=== PATIENT | female | born 1960 | race Hispanic/Latino ===

== ENCOUNTER 2022-03-22 21:30 | Inpatient (IN) | payer OTHER ==
[~2022-03-22] VITALS: Ht 152.4 cm; Wt 56.2 kg
[~2022-03-22 21:30] MED LIST: ASPI-1005 PO; ATOR40TA69 PO; CLOP75TA14 PO; INSLAN SQ; LEVO750T68 PO; LOSA50TA2 PO; METF-446 PO; METO50 PO; METR-172 PO
[2022-03-22 22:26] LABS: BASOPHILS % (AUTO) 0.4 % (0.0-5.0); HEMATOCRIT 28.7 % (36-48); LYMPHOCYTES % (AUTO) 27.1 % (21.0-51.0); MEAN CORPUSCULAR HEMOGLOBIN 29.4 pg (27.0-33.0); MEAN CORPUSCULAR HGB CONC 34.1 g/dL (32.0-36.0); MEAN CORPUSCULAR VOLUME 86.2 fL (79-99); MONOCYTES % (AUTO) 5.4 % (3.0-13.0); NEUTROPHILS % (AUTO) 63.8 % (40.0-77.0); PLATELET COUNT (AUTO) 237 K/uL (130-400); RED BLOOD CELL COUNT(AUTO) 3.33 MIL/uL (4.00-5.50)
[2022-03-22 22:43] LABS: CARBON DIOXIDE 28 mmol/L (21-32); CHLORIDE 100 mmol/L (101-111); CREATININE 1.5 mg/dL (0.5-1.5); GLOMERULAR FILTR. RATE CALC 38 mL/min (>60); GLUCOSE,RANDOM 386 mg/dL (70-105); POTASSIUM 4.4 mmol/L (3.5-5.1); SODIUM SERUM 135 mmol/L (136-145); UREA NITROGEN, BLOOD 24 mg/dL (7-18)
[2022-03-22 22:47] LABS: ALANINE AMINOTRANSFERASE 17 U/L (12-78); ALBUMIN 2.9 g/dL (3.5-5.0); ASPARTATE AMINOTRANSFERASE 12 U/L (10-37); CREATINE KINASE, TOTAL 39 U/L (21-232); TOTAL PROTEIN, SERUM 7.1 g/dL (6.0-8.3)
[2022-03-22 23:05] LABS: CRP QUANTITATIVE < 2.00 mg/L (0.00-9.0)
[2022-03-22 23:20] LABS: B-TYPE NATRIURETIC PEPTIDE 62 pg/mL (0-100)
[2022-03-23] MEDS ORDERED: 0.9% NACL 500ML IV.SOLN 500 ML IV ONE (01:00)
[2022-03-23] MEDS ORDERED: INSULIN HUMULIN R 100 UNIT/ML 3ML IV ONE (01:00)
[2022-03-23 01:05] LABS: APPEARANCE,URINE Clear (CLEAR); BILIRUBIN,URINE Negative (NEGATIVE); COLOR,URINE Yellow (YELLOW); GLUCOSE, URINE (UA) >=1000 mg/dL (NEGATIVE); KETONES,URINE Negative (NEGATIVE); LEUKOCYTE ESTERASE ,URINE Trace (NEGATIVE); NITRATE,URINE Negative (NEGATIVE); OCCULT BLOOD,URINE Negative (NEGATIVE); PROTEIN,URINE Negative (NEGATIVE); UROBILINOGEN,URINE 0.2 mg/dL (0.2-1.0)
[2022-03-23 01:24] LABS: BACTERIA,URINE None Seen /HPF (None Seen); RBC,URINE None Seen /HPF (0-1); SQUAMOUS EPITHELIAL CELL,UR Rare /HPF (0-2); WBC,URINE 0-1 /HPF (0-1); YEAST,URINE BUDDING None Seen /HPF (None Seen)
[2022-03-23] MEDS ORDERED: INSULIN HUMULIN R 100 UNIT/ML 3ML SQ ONE (01:30)
[2022-03-23] MEDS: LACTATED RINGERS 1000ML 1,000 ML IV SCH ×2 (03:27→03:58)
[2022-03-23] MEDS ORDERED: ACETAMINOPHEN 325 MG TAB PO PRN ×2 (03:30)
[2022-03-23] MEDS: 0.9%NACL 1000ML 1,000 ML IV SCH ×2 (03:30→12:30)
[2022-03-23] MEDS ORDERED: ONDANSETRON 4MG INJ IV PRN (03:30)
[2022-03-23] MEDS ORDERED: GLUCAGON 1MG KIT 1 MG ML IM PRN (03:30)
[2022-03-23] MEDS ORDERED: DiphenhydrAMINE HCL 50 MG/ML VIAL IV PRN (03:30)
[2022-03-23] MEDS ORDERED: DEXTROSE 50%-WATER 50 ML DISP.SYRIN IV PRN (03:30)
[2022-03-23 05:00] VITALS: BP 147/68
[2022-03-23 06:04] LABS: BASOPHILS % (AUTO) 0.6 % (0.0-5.0); EOSINOPHILS % (AUTO) 3.3 % (0.0-8.0); HEMATOCRIT 29.7 % (36-48); LYMPHOCYTES % (AUTO) 34.5 % (21.0-51.0); MEAN CORPUSCULAR HEMOGLOBIN 28.9 pg (27.0-33.0); MEAN CORPUSCULAR HGB CONC 33.3 g/dL (32.0-36.0); MEAN CORPUSCULAR VOLUME 86.6 fL (79-99); MONOCYTES % (AUTO) 5.6 % (3.0-13.0); NEUTROPHILS % (AUTO) 55.8 % (40.0-77.0); PLATELET COUNT (AUTO) 229 K/uL (130-400); RED BLOOD CELL COUNT(AUTO) 3.43 MIL/uL (4.00-5.50); WHITE BLOOD COUNT (AUTO) 6.6 K/uL (4.8-10.8)
[2022-03-23] MEDS: INSULIN HUMULIN R 100 UNIT/ML 3ML SQ SCH ×4 (06:11→21:00)
[2022-03-23 06:18] LABS: HEMOGLOBIN A1C 9.9 % (4.0-6.0)
[2022-03-23] MEDS ORDERED: ATORVASTATIN 20 MG TABLET PO SCH (06:30)
[2022-03-23] MEDS ORDERED: ASPIRIN 81MG CHEW TAB PO SCH (06:30)
[2022-03-23 06:36] LABS: CREATININE 1.2 mg/dL (0.5-1.5); POTASSIUM 4.6 mmol/L (3.5-5.1); THYROID STIMULATING HORMONE 11.56 uIU/mL (0.36-3.74)
[2022-03-23 08:00] VITALS: BP 157/86
[2022-03-23 09:06] LABS: CHLORIDE,URINE RANDOM 47 mmol/L (110-250); POTASSIUM,URINE RANDOM 12 mmol/L (25-125); SODIUM,URINE RANDOM 45 mmol/l (40-220)
[2022-03-23] MEDS: ENOXAPARIN SODIUM 30 MG/0.3 ML SQ SCH (09:54)
[2022-03-23] MEDS: FAMOTIDINE 20MG VIAL IV SCH (09:54)
[2022-03-23] MEDS ORDERED: VANCOMYCIN PROTOCOL PER PHARMACY IV SCH (10:30)
[2022-03-23 12:00] VITALS: BP 123/65
[2022-03-23] MEDS: VANCOMYCIN 750MG VIAL IVPB SCH (12:31)
[2022-03-23] MEDS: CEFEPIME HCL 2 GM VIAL IVP SCH ×2 (12:36→21:35)
[2022-03-23] MEDS: INSULIN GLARGINE 100 UNITS/ML 10 ML VIAL SQ SCH ×2 (12:38→21:37)
[2022-03-23] MEDS: METRONIDAZOLE 500MG/100ML BAG 100 ML IVPB SCH ×2 (14:45→21:35)
[2022-03-23 16:00] VITALS: BP 129/66
[2022-03-23] MEDS: ASPIRIN 81MG CHEW TAB PO SCH (19:30)
[2022-03-23 20:00] VITALS: BP 143/81
[2022-03-23] MEDS: ATORVASTATIN 40 MG TABLET PO SCH (21:33)
[2022-03-23] MEDS: METOPROLOL TARTRATE 25 MG TAB PO SCH (21:33)
[2022-03-24] VITALS: BP 118/65
[2022-03-24 04:00] VITALS: BP 115/55
[2022-03-24 04:32] LABS: BASOPHILS % (AUTO) 0.7 % (0.0-5.0); EOSINOPHILS % (AUTO) 2.8 % (0.0-8.0); LYMPHOCYTES % (AUTO) 34.9 % (21.0-51.0); MEAN CORPUSCULAR HEMOGLOBIN 28.7 pg (27.0-33.0); MEAN CORPUSCULAR HGB CONC 32.4 g/dL (32.0-36.0); MEAN CORPUSCULAR VOLUME 88.4 fL (79-99); MONOCYTES % (AUTO) 5.5 % (3.0-13.0); NEUTROPHILS % (AUTO) 55.8 % (40.0-77.0); PLATELET COUNT (AUTO) 232 K/uL (130-400); RED BLOOD CELL COUNT(AUTO) 3.28 MIL/uL (4.00-5.50); RED CELL DISTRIBUTION WIDTH 13.1 % (11.0-15.5); WHITE BLOOD COUNT (AUTO) 7.2 K/uL (4.8-10.8)
[2022-03-24 04:50] LABS: % IRON SATURATION 25.5 % (22-44)
[2022-03-24 04:54] LABS: ALBUMIN 2.6 g/dL (3.5-5.0); CREATININE 1.2 mg/dL (0.5-1.5); MAGNESIUM 1.4 mg/dL (1.80-2.40); TOTAL PROTEIN, SERUM 6.3 g/dL (6.0-8.3); URIC ACID 3.4 mg/dL (2.6-7.2)
[2022-03-24] MEDS: METRONIDAZOLE 500MG/100ML BAG 100 ML IVPB SCH ×3 (06:02→21:45)
[2022-03-24] MEDS: MAGNESIUM 2GM PREMIX 50ML 50 ML IV PRN (06:03)
[2022-03-24] MEDS: INSULIN GLARGINE 100 UNITS/ML 10 ML VIAL SQ SCH ×2 (06:04→22:00)
[2022-03-24] MEDS: INSULIN HUMULIN R 100 UNIT/ML 3ML SQ SCH ×4 (06:05→21:00)
[2022-03-24 07:00] VITALS: BP 120/67
[2022-03-24] MEDS: METOPROLOL TARTRATE 25 MG TAB PO SCH ×2 (09:52→21:45)
[2022-03-24] MEDS: FAMOTIDINE 20MG VIAL IV SCH (09:52)
[2022-03-24] MEDS: CEFEPIME HCL 2 GM VIAL IVP SCH ×2 (09:52→21:45)
[2022-03-24] MEDS: Vitamin B Complex/Vit C/Folic Acid PO SCH (09:52)
[2022-03-24] MEDS: ASPIRIN 81MG CHEW TAB PO SCH (09:52)
[2022-03-24] MEDS: ENOXAPARIN SODIUM 30 MG/0.3 ML SQ SCH (09:53)
[2022-03-24 11:00] VITALS: BP 110/58
[2022-03-24] MEDS ORDERED: 0.9% NACL 250ML 250 ML ONE (11:01)
[2022-03-24] MEDS: VANCOMYCIN 750MG VIAL IVPB SCH (11:04)
[2022-03-24] MEDS: 0.9%NACL 1000ML 1,000 ML IV SCH (12:50)
[2022-03-24 16:00] VITALS: BP 128/59
[2022-03-24] MEDS ORDERED: PHARMACY COMMUNICATION MISC SCH ×2 (18:30→19:00)
[2022-03-24 20:00] VITALS: BP 122/69
[2022-03-24] MEDS: ATORVASTATIN 40 MG TABLET PO SCH (21:45)
[2022-03-25] VITALS (14 sets, daily range): BP systolic 115–185; BP diastolic 52–87
[2022-03-25 04:39] LABS: HEMATOCRIT 27.5 % (36-48); MEAN CORPUSCULAR HGB CONC 32.7 g/dL (32.0-36.0); MEAN CORPUSCULAR VOLUME 88.7 fL (79-99); RED BLOOD CELL COUNT(AUTO) 3.1 MIL/uL (4.00-5.50); RED CELL DISTRIBUTION WIDTH 13.1 % (11.0-15.5)
[2022-03-25 05:01] LABS: CREATININE 1.1 mg/dL (0.5-1.5); MAGNESIUM 1.6 mg/dL (1.80-2.40); POTASSIUM 3.8 mmol/L (3.5-5.1)
[2022-03-25] MEDS: METRONIDAZOLE 500MG/100ML BAG 100 ML IVPB SCH ×3 (06:19→21:34)
[2022-03-25] MEDS: INSULIN HUMULIN R 100 UNIT/ML 3ML SQ SCH ×4 (06:19→21:00)
[2022-03-25] MEDS: 0.9%NACL 1000ML 1,000 ML IV SCH (06:19)
[2022-03-25] MEDS: LEVOTHYROXINE 75 MCG TABLET PO SCH (06:19)
[2022-03-25] MEDS: INSULIN GLARGINE 100 UNITS/ML 10 ML VIAL SQ SCH ×2 (06:20→21:42)
[2022-03-25] MEDS: ENOXAPARIN SODIUM 30 MG/0.3 ML SQ SCH (09:28)
[2022-03-25] MEDS: FAMOTIDINE 20MG VIAL IV SCH (09:28)
[2022-03-25] MEDS: CEFEPIME HCL 2 GM VIAL IVP SCH ×2 (09:28→21:34)
[2022-03-25] MEDS: ASPIRIN 81MG CHEW TAB PO SCH (09:28)
[2022-03-25] MEDS: METOPROLOL TARTRATE 25 MG TAB PO SCH ×2 (09:28→21:34)
[2022-03-25] MEDS: Vitamin B Complex/Vit C/Folic Acid PO SCH (09:28)
[2022-03-25] MEDS: VANCOMYCIN 750MG VIAL IVPB SCH (11:41)
[2022-03-25] MEDS ORDERED: NITROGLYCERIN 50MG VIAL ONE (12:38)
[2022-03-25] MEDS ORDERED: MIDAZOLAM HCL 1 MG/ML 2ML VIAL ONE (12:38)
[2022-03-25] MEDS ORDERED: HEPARIN 10,000 UNIT/10ML (1,000 UNIT/ML) VIAL ONE (12:38)
[2022-03-25] MEDS ORDERED: SODIUM BICARB 50MEQ 50ML VIAL 50 ML ONE (12:38)
[2022-03-25] MEDS ORDERED: LIDOCAINE HCL 400MG/20ML VIAL ONE (12:39)
[2022-03-25] MEDS ORDERED: FENTANYL CITRATE PF 50 MCG/1 ML 2ML VIAL ONE (12:39)
[2022-03-25] MEDS ORDERED: IOHEXOL 350 MG/ML 100ML INFUS..BTL IV ONE (12:40)
[2022-03-25] MEDS ORDERED: 0.9%NACL 1000ML 1,000 ML IV SCH (14:30)
[2022-03-25] MEDS ORDERED: MORPHINE 5 MG/ML VIAL (5MG OR GREATER DOSE) IVP SCH (14:30)
[2022-03-25] MEDS: ATORVASTATIN 40 MG TABLET PO SCH (21:34)
[2022-03-26 04:35] LABS: BASOPHILS % (AUTO) 0.5 % (0.0-5.0); EOSINOPHILS % (AUTO) 1.8 % (0.0-8.0); HEMATOCRIT 28.6 % (36-48); LYMPHOCYTES % (AUTO) 27.7 % (21.0-51.0); MEAN CORPUSCULAR HEMOGLOBIN 28.7 pg (27.0-33.0); MEAN CORPUSCULAR HGB CONC 32.9 g/dL (32.0-36.0); MEAN CORPUSCULAR VOLUME 87.5 fL (79-99); MONOCYTES % (AUTO) 5.9 % (3.0-13.0); NEUTROPHILS % (AUTO) 63.8 % (40.0-77.0); PLATELET COUNT (AUTO) 221 K/uL (130-400); RED BLOOD CELL COUNT(AUTO) 3.27 MIL/uL (4.00-5.50); RED CELL DISTRIBUTION WIDTH 13.1 % (11.0-15.5); WHITE BLOOD COUNT (AUTO) 7.6 K/uL (4.8-10.8)
[2022-03-26 04:45] VITALS: BP 106/56
[2022-03-26] MEDS: METRONIDAZOLE 500MG/100ML BAG 100 ML IVPB SCH ×3 (04:59→20:41)
[2022-03-26] MEDS: LEVOTHYROXINE 75 MCG TABLET PO SCH (04:59)
[2022-03-26 05:00] LABS: CREATININE 1.1 mg/dL (0.5-1.5); MAGNESIUM 1.5 mg/dL (1.80-2.40); POTASSIUM 3.8 mmol/L (3.5-5.1)
[2022-03-26] MEDS: INSULIN HUMULIN R 100 UNIT/ML 3ML SQ SCH ×4 (06:49→20:42)
[2022-03-26] MEDS: MAGNESIUM 2GM PREMIX 50ML 50 ML IV PRN (06:54)
[2022-03-26 08:17] VITALS: BP 134/67
[2022-03-26] MEDS: Vitamin B Complex/Vit C/Folic Acid PO SCH (10:16)
[2022-03-26] MEDS: PRASUGREL HCL 10 MG TABLET PO SCH (10:16)
[2022-03-26] MEDS: ASPIRIN 81MG CHEW TAB PO SCH (10:16)
[2022-03-26] MEDS: METOPROLOL TARTRATE 25 MG TAB PO SCH ×2 (10:16→20:41)
[2022-03-26] MEDS: CEFEPIME HCL 2 GM VIAL IVP SCH ×2 (10:17→20:41)
[2022-03-26] MEDS: ENOXAPARIN SODIUM 30 MG/0.3 ML SQ SCH (10:17)
[2022-03-26] MEDS: VANCOMYCIN 750MG VIAL IVPB SCH (10:18)
[2022-03-26] MEDS: FAMOTIDINE 20MG VIAL IV SCH (10:18)
[2022-03-26] MEDS: INSULIN GLARGINE 100 UNITS/ML 10 ML VIAL SQ SCH ×2 (10:59→21:38)
[2022-03-26] MEDS: 0.9%NACL 1000ML 1,000 ML IV SCH ×2 (11:03→14:58)
[2022-03-26 11:58] VITALS: BP 125/67
[2022-03-26] MEDS ORDERED: LIDOCAINE HCL-MPF 1% 2ML VIAL IV PRN (12:00)
[2022-03-26] MEDS ORDERED: POTASSIUM CHLORIDE 10% ELIXIR 20 MEQ/15 ML UDCUP PO PRN (12:00)
[2022-03-26] MEDS ORDERED: POTASSIUM CHLORIDE 20MEQ/100ML 100 ML IV PRN (12:00)
[2022-03-26] MEDS: SODIUM HYPOCHLORITE 0.25% [HALF STRENGTH] 473 ML TOPICAL SOLN TP SCH (14:25)
[2022-03-26 16:11] VITALS: BP 114/51
[2022-03-26] MEDS: KCL 20 MEQ ERTAB PO PRN ×2 (17:10→19:21)
[2022-03-26 20:38] VITALS: BP 118/65
[2022-03-26] MEDS: ATORVASTATIN 40 MG TABLET PO SCH (20:41)
[2022-03-26] MEDS ORDERED: PRAS10TA9 PO (21:03)
[2022-03-26 22:41] LABS: APPEARANCE,URINE CLEAR (CLEAR); BILIRUBIN,URINE NEGATIVE (NEGATIVE); GLUCOSE, URINE (UA) NEGATIVE (NEGATIVE); KETONES,URINE NEGATIVE (NEGATIVE); LEUKOCYTE ESTERASE ,URINE NEGATIVE (NEGATIVE); NITRATE,URINE NEGATIVE (NEGATIVE); OCCULT BLOOD,URINE NEGATIVE (NEGATIVE); PROTEIN,URINE NEGATIVE (NEGATIVE); UROBILINOGEN,URINE 0.2 mg/dL (0.2-1.0)
[2022-03-26 22:50] LABS: COLOR,URINE STRAW (YELLOW)
[2022-03-26 23:58] VITALS: BP 106/63
[2022-03-27] VITALS (7 sets, daily range): BP systolic 85–141; BP diastolic 50–77
[2022-03-27 04:40] LABS: HEMATOCRIT 25.6 % (36-48); MEAN CORPUSCULAR HEMOGLOBIN 28.6 pg (27.0-33.0); MEAN CORPUSCULAR HGB CONC 32.8 g/dL (32.0-36.0); MEAN CORPUSCULAR VOLUME 87.1 fL (79-99); RED BLOOD CELL COUNT(AUTO) 2.94 MIL/uL (4.00-5.50); RED CELL DISTRIBUTION WIDTH 13.2 % (11.0-15.5); WHITE BLOOD COUNT (AUTO) 7.1 K/uL (4.8-10.8)
[2022-03-27 05:05] LABS: ALBUMIN 2.5 g/dL (3.5-5.0); MAGNESIUM 1.9 mg/dL (1.80-2.40); POTASSIUM 4.2 mmol/L (3.5-5.1); TOTAL PROTEIN, SERUM 5.9 g/dL (6.0-8.3)
[2022-03-27] MEDS: INSULIN HUMULIN R 100 UNIT/ML 3ML SQ SCH ×4 (05:36→22:19)
[2022-03-27] MEDS: INSULIN GLARGINE 100 UNITS/ML 10 ML VIAL SQ SCH (05:37)
[2022-03-27] MEDS: METRONIDAZOLE 500MG/100ML BAG 100 ML IVPB SCH ×3 (05:38→22:24)
[2022-03-27] MEDS: LEVOTHYROXINE 75 MCG TABLET PO SCH (05:38)
[2022-03-27] MEDS: MAGNESIUM 2GM PREMIX 50ML 50 ML IV PRN (06:19)
[2022-03-27] MEDS: 0.9%NACL 1000ML 1,000 ML IV SCH (07:30)
[2022-03-27] MEDS: CEFEPIME HCL 2 GM VIAL IVP SCH ×2 (10:25→22:24)
[2022-03-27] MEDS: Vitamin B Complex/Vit C/Folic Acid PO SCH (10:25)
[2022-03-27] MEDS: PRASUGREL HCL 10 MG TABLET PO SCH (10:25)
[2022-03-27] MEDS: FAMOTIDINE 20MG VIAL IV SCH (10:26)
[2022-03-27] MEDS: ASPIRIN 81MG CHEW TAB PO SCH (10:26)
[2022-03-27] MEDS: SODIUM HYPOCHLORITE 0.25% [HALF STRENGTH] 473 ML TOPICAL SOLN TP SCH (10:27)
[2022-03-27] MEDS: ENOXAPARIN SODIUM 30 MG/0.3 ML SQ SCH (10:27)
[2022-03-27] MEDS: VANCOMYCIN 750MG VIAL IVPB SCH (10:27)
[2022-03-27] MEDS: METOPROLOL TARTRATE 25 MG TAB PO SCH ×2 (12:38→22:16)
[2022-03-27] MEDS ORDERED: INSULIN GLARGINE 100 UNITS/ML 10 ML VIAL SQ SCH (21:00)
[2022-03-27] MEDS: ATORVASTATIN 40 MG TABLET PO SCH (22:16)
[2022-03-28] MEDS: 0.9%NACL 1000ML 1,000 ML IV SCH ×2 (00:10→16:50)
[2022-03-28 03:53] VITALS: BP 110/56
[2022-03-28 05:03] LABS: HEMATOCRIT 24.2 % (36-48); MEAN CORPUSCULAR HEMOGLOBIN 29.9 pg (27.0-33.0); MEAN CORPUSCULAR HGB CONC 33.9 g/dL (32.0-36.0); MEAN CORPUSCULAR VOLUME 88.3 fL (79-99); PLATELET COUNT (AUTO) 174 K/uL (130-400); RED BLOOD CELL COUNT(AUTO) 2.74 MIL/uL (4.00-5.50); RED CELL DISTRIBUTION WIDTH 13.2 % (11.0-15.5); WHITE BLOOD COUNT (AUTO) 7.2 K/uL (4.8-10.8)
[2022-03-28 05:26] LABS: CREATININE 1.5 mg/dL (0.5-1.5); POTASSIUM 4.4 mmol/L (3.5-5.1)
[2022-03-28 05:29] LABS: BAND NEUTROPHILS % (MANUAL) 1 % (0-2); BASOPHILS % (MANUAL) 2 % (0-2); EOSINOPHILS % (MANUAL) 1 % (1-6); LYMPHOCYTES % (MANUAL) 42 % (22-44); MAN.DIFF COMMENT-IMPRESSION MANUAL DIFFERENTIAL; MONOCYTES % (MANUAL) 4 % (2-9); PLATELET MORPHOLOGY COMMENT ADEQUATE; SEGMENTED NEUTROPHILS % 50 % (40-70)
[2022-03-28] MEDS: LEVOTHYROXINE 75 MCG TABLET PO SCH (06:12)
[2022-03-28] MEDS: METRONIDAZOLE 500MG/100ML BAG 100 ML IVPB SCH ×3 (06:12→22:03)
[2022-03-28] MEDS: INSULIN HUMULIN R 100 UNIT/ML 3ML SQ SCH ×4 (07:30→20:08)
[2022-03-28] MEDS: Vitamin B Complex/Vit C/Folic Acid PO SCH (07:58)
[2022-03-28] MEDS: METOPROLOL TARTRATE 25 MG TAB PO SCH ×2 (07:58→20:08)
[2022-03-28] MEDS: ASPIRIN 81MG CHEW TAB PO SCH (07:58)
[2022-03-28] MEDS: ENOXAPARIN SODIUM 30 MG/0.3 ML SQ SCH (07:58)
[2022-03-28] MEDS: SODIUM HYPOCHLORITE 0.25% [HALF STRENGTH] 473 ML TOPICAL SOLN TP SCH (07:59)
[2022-03-28] MEDS: FAMOTIDINE 20MG VIAL IV SCH (07:59)
[2022-03-28 08:00] VITALS: BP 119/51
[2022-03-28] MEDS: INSULIN GLARGINE 100 UNITS/ML 10 ML VIAL SQ SCH ×2 (08:06→20:10)
[2022-03-28] MEDS: PRASUGREL HCL 10 MG TABLET PO SCH (09:00)
[2022-03-28] MEDS ORDERED: 0.9% NACL 250ML 250 ML ONE (11:44)
[2022-03-28] MEDS: CEFEPIME HCL 2 GM VIAL IVP SCH ×2 (11:47→22:03)
[2022-03-28] MEDS: VANCOMYCIN 750MG VIAL IVPB SCH (11:47)
[2022-03-28 12:14] VITALS: BP 117/58
[2022-03-28 16:00] VITALS: BP 125/55
[2022-03-28 20:01] VITALS: BP 124/58
[2022-03-28] MEDS: ATORVASTATIN 40 MG TABLET PO SCH (20:08)
[2022-03-28 23:13] VITALS: BP 135/63
[2022-03-29 03:32] VITALS: BP 116/57
[2022-03-29] MEDS: METRONIDAZOLE 500MG/100ML BAG 100 ML IVPB SCH ×3 (05:34→22:26)
[2022-03-29] MEDS: LEVOTHYROXINE 75 MCG TABLET PO SCH (05:34)
[2022-03-29 05:59] LABS: BASOPHILS % (AUTO) 0.6 % (0.0-5.0); EOSINOPHILS % (AUTO) 3.8 % (0.0-8.0); MEAN CORPUSCULAR HEMOGLOBIN 29.1 pg (27.0-33.0); MEAN CORPUSCULAR HGB CONC 33.1 g/dL (32.0-36.0); MEAN CORPUSCULAR VOLUME 87.8 fL (79-99); MONOCYTES % (AUTO) 7.3 % (3.0-13.0); NEUTROPHILS % (AUTO) 49.1 % (40.0-77.0); PLATELET COUNT (AUTO) 186 K/uL (130-400); RED BLOOD CELL COUNT(AUTO) 2.96 MIL/uL (4.00-5.50); RED CELL DISTRIBUTION WIDTH 13.2 % (11.0-15.5); WHITE BLOOD COUNT (AUTO) 6.6 K/uL (4.8-10.8)
[2022-03-29 06:10] LABS: CREATININE 1.2 mg/dL (0.5-1.5); POTASSIUM 3.8 mmol/L (3.5-5.1)
[2022-03-29] MEDS: INSULIN HUMULIN R 100 UNIT/ML 3ML SQ SCH ×7 (07:30→21:49)
[2022-03-29 08:00] VITALS: BP 139/61
[2022-03-29] MEDS: INSULIN GLARGINE 100 UNITS/ML 10 ML VIAL SQ SCH ×2 (08:33→21:50)
[2022-03-29] MEDS: Vitamin B Complex/Vit C/Folic Acid PO SCH (09:13)
[2022-03-29] MEDS: METOPROLOL TARTRATE 25 MG TAB PO SCH ×2 (09:13→20:31)
[2022-03-29] MEDS: ASPIRIN 81MG CHEW TAB PO SCH (09:13)
[2022-03-29] MEDS: PRASUGREL HCL 10 MG TABLET PO SCH (09:13)
[2022-03-29] MEDS: ENOXAPARIN SODIUM 30 MG/0.3 ML SQ SCH (09:14)
[2022-03-29] MEDS: FAMOTIDINE 20MG VIAL IV SCH (09:14)
[2022-03-29] MEDS: CEFEPIME HCL 2 GM VIAL IVP SCH ×2 (11:07→22:26)
[2022-03-29] MEDS: SODIUM HYPOCHLORITE 0.25% [HALF STRENGTH] 473 ML TOPICAL SOLN TP SCH (11:08)
[2022-03-29 11:28] VITALS: BP 115/65
[2022-03-29] MEDS ORDERED: 0.9% NACL 250ML 250 ML ONE (11:40)
[2022-03-29] MEDS: VANCOMYCIN 750MG VIAL IVPB SCH (12:04)
[2022-03-29 16:00] VITALS: BP 127/56
[2022-03-29 20:05] VITALS: BP 124/52
[2022-03-29] MEDS: 0.9%NACL 1000ML 1,000 ML IV SCH (20:31)
[2022-03-29] MEDS: ATORVASTATIN 40 MG TABLET PO SCH (20:31)
[2022-03-30 01:13] VITALS: BP 113/43
[2022-03-30] MEDS: 0.9%NACL 1000ML 1,000 ML IV SCH ×2 (01:40→20:23)
[2022-03-30 04:25] VITALS: BP 125/46
[2022-03-30 05:49] LABS: BASOPHILS % (AUTO) 0.5 % (0.0-5.0); EOSINOPHILS % (AUTO) 4.3 % (0.0-8.0); HEMATOCRIT 24.3 % (36-48); MEAN CORPUSCULAR HEMOGLOBIN 29.4 pg (27.0-33.0); MEAN CORPUSCULAR HGB CONC 32.9 g/dL (32.0-36.0); MEAN CORPUSCULAR VOLUME 89.3 fL (79-99); MONOCYTES % (AUTO) 6.3 % (3.0-13.0); NEUTROPHILS % (AUTO) 51.8 % (40.0-77.0); PLATELET COUNT (AUTO) 193 K/uL (130-400); RED BLOOD CELL COUNT(AUTO) 2.72 MIL/uL (4.00-5.50); RED CELL DISTRIBUTION WIDTH 13.2 % (11.0-15.5); WHITE BLOOD COUNT (AUTO) 7.5 K/uL (4.8-10.8)
[2022-03-30] MEDS: INSULIN HUMULIN R 100 UNIT/ML 3ML SQ SCH ×7 (05:55→20:27)
[2022-03-30 06:03] LABS: ALBUMIN 2.5 g/dL (3.5-5.0); CREATININE 1.2 mg/dL (0.5-1.5); POTASSIUM 3.6 mmol/L (3.5-5.1); TOTAL PROTEIN, SERUM 6.1 g/dL (6.0-8.3)
[2022-03-30] MEDS: LEVOTHYROXINE 75 MCG TABLET PO SCH (06:04)
[2022-03-30] MEDS: METRONIDAZOLE 500MG/100ML BAG 100 ML IVPB SCH ×3 (06:04→21:28)
[2022-03-30] MEDS: INSULIN GLARGINE 100 UNITS/ML 10 ML VIAL SQ SCH ×2 (06:11→20:27)
[2022-03-30] MEDS: KCL 20 MEQ ERTAB PO PRN ×2 (06:33→17:31)
[2022-03-30 07:11] VITALS: BP 132/58
[2022-03-30] MEDS: ASPIRIN 81MG CHEW TAB PO SCH (10:48)
[2022-03-30] MEDS: CEFEPIME HCL 2 GM VIAL IVP SCH ×2 (10:48→21:28)
[2022-03-30] MEDS: ENOXAPARIN SODIUM 30 MG/0.3 ML SQ SCH (10:48)
[2022-03-30] MEDS: FAMOTIDINE 20MG VIAL IV SCH (10:48)
[2022-03-30] MEDS: PRASUGREL HCL 10 MG TABLET PO SCH (10:49)
[2022-03-30] MEDS: Vitamin B Complex/Vit C/Folic Acid PO SCH (10:49)
[2022-03-30] MEDS: METOPROLOL TARTRATE 25 MG TAB PO SCH ×2 (10:49→20:21)
[2022-03-30] MEDS: VANCOMYCIN 750MG VIAL IVPB SCH (11:58)
[2022-03-30 12:04] VITALS: BP 140/61
[2022-03-30] MEDS: SODIUM HYPOCHLORITE 0.25% [HALF STRENGTH] 473 ML TOPICAL SOLN TP SCH (15:15)
[2022-03-30 16:06] VITALS: BP 136/60
[2022-03-30] MEDS: ATORVASTATIN 40 MG TABLET PO SCH (20:21)
[2022-03-30 20:38] VITALS: BP 139/70
[2022-03-30] MEDS ORDERED: LACTULOSE 20 GM/30 ML UDCUP PO ONE (22:30)
[2022-03-31 00:06] VITALS: BP 112/57
[2022-03-31] MEDS ORDERED: LACTULOSE 20 GM/30 ML UDCUP PO PRN (03:30)
[2022-03-31 04:37] VITALS: BP 122/62
[2022-03-31 04:56] LABS: BASOPHILS % (AUTO) 0.8 % (0.0-5.0); EOSINOPHILS % (AUTO) 4.5 % (0.0-8.0); HEMATOCRIT 24.2 % (36-48); LYMPHOCYTES % (AUTO) 40.6 % (21.0-51.0); MEAN CORPUSCULAR HEMOGLOBIN 28.9 pg (27.0-33.0); MEAN CORPUSCULAR HGB CONC 32.6 g/dL (32.0-36.0); MEAN CORPUSCULAR VOLUME 88.6 fL (79-99); MONOCYTES % (AUTO) 7.8 % (3.0-13.0); PLATELET COUNT (AUTO) 187 K/uL (130-400); RED BLOOD CELL COUNT(AUTO) 2.73 MIL/uL (4.00-5.50); RED CELL DISTRIBUTION WIDTH 13.4 % (11.0-15.5); WHITE BLOOD COUNT (AUTO) 6.4 K/uL (4.8-10.8)
[2022-03-31 05:10] LABS: POTASSIUM 3.8 mmol/L (3.5-5.1)
[2022-03-31] MEDS: METRONIDAZOLE 500MG/100ML BAG 100 ML IVPB SCH ×3 (06:02→21:48)
[2022-03-31] MEDS: LEVOTHYROXINE 75 MCG TABLET PO SCH (06:02)
[2022-03-31] MEDS: INSULIN GLARGINE 100 UNITS/ML 10 ML VIAL SQ SCH ×2 (06:06→21:56)
[2022-03-31] MEDS: INSULIN HUMULIN R 100 UNIT/ML 3ML SQ SCH ×7 (06:32→21:00)
[2022-03-31 07:05] VITALS: BP 125/48
[2022-03-31] MEDS: ENOXAPARIN SODIUM 30 MG/0.3 ML SQ SCH (09:00)
[2022-03-31] MEDS: METOPROLOL TARTRATE 25 MG TAB PO SCH ×2 (09:24→21:47)
[2022-03-31] MEDS: PRASUGREL HCL 10 MG TABLET PO SCH (09:24)
[2022-03-31] MEDS: Vitamin B Complex/Vit C/Folic Acid PO SCH (09:24)
[2022-03-31] MEDS: ASPIRIN 81MG CHEW TAB PO SCH (09:24)
[2022-03-31] MEDS: FAMOTIDINE 20MG VIAL IV SCH (09:24)
[2022-03-31] MEDS: CEFEPIME HCL 2 GM VIAL IVP SCH ×2 (10:01→21:47)
[2022-03-31 12:07] VITALS: BP 115/45
[2022-03-31] MEDS: VANCOMYCIN 750MG VIAL IVPB SCH (12:25)
[2022-03-31 16:10] VITALS: BP 133/61
[2022-03-31] MEDS: SODIUM HYPOCHLORITE 0.25% [HALF STRENGTH] 473 ML TOPICAL SOLN TP SCH (17:24)
[2022-03-31] MEDS: VANCOMYCIN 500MG+NS 100ML 100 ML IV SCH (18:31)
[2022-03-31] MEDS: 0.9%NACL 1000ML 1,000 ML IV SCH (18:32)
[2022-03-31 20:20] VITALS: BP 145/66
[2022-03-31] MEDS: ATORVASTATIN 40 MG TABLET PO SCH (21:47)
[2022-04-01] VITALS (7 sets, daily range): BP systolic 108–130; BP diastolic 46–60
[2022-04-01] MEDS: 0.9%NACL 1000ML 1,000 ML IV SCH ×2 (05:31→20:50)
[2022-04-01] MEDS: METRONIDAZOLE 500MG/100ML BAG 100 ML IVPB SCH ×3 (05:31→21:49)
[2022-04-01] MEDS: LEVOTHYROXINE 75 MCG TABLET PO SCH (05:31)
[2022-04-01 05:45] LABS: BASOPHILS % (AUTO) 0.5 % (0.0-5.0); EOSINOPHILS % (AUTO) 4.7 % (0.0-8.0); HEMATOCRIT 25.8 % (36-48); LYMPHOCYTES % (AUTO) 41.3 % (21.0-51.0); MEAN CORPUSCULAR HEMOGLOBIN 28.9 pg (27.0-33.0); MEAN CORPUSCULAR HGB CONC 32.6 g/dL (32.0-36.0); MEAN CORPUSCULAR VOLUME 88.7 fL (79-99); MONOCYTES % (AUTO) 8.1 % (3.0-13.0); NEUTROPHILS % (AUTO) 45.1 % (40.0-77.0); PLATELET COUNT (AUTO) 190 K/uL (130-400); RED BLOOD CELL COUNT(AUTO) 2.91 MIL/uL (4.00-5.50); RED CELL DISTRIBUTION WIDTH 13.5 % (11.0-15.5); WHITE BLOOD COUNT (AUTO) 7.3 K/uL (4.8-10.8)
[2022-04-01 05:58] LABS: CREATININE 1.1 mg/dL (0.5-1.5); POTASSIUM 3.9 mmol/L (3.5-5.1)
[2022-04-01] MEDS: INSULIN HUMULIN R 100 UNIT/ML 3ML SQ SCH ×7 (06:22→21:51)
[2022-04-01] MEDS: VANCOMYCIN 500MG+NS 100ML 100 ML IV SCH ×2 (06:24→17:57)
[2022-04-01] MEDS: INSULIN GLARGINE 100 UNITS/ML 10 ML VIAL SQ SCH ×2 (07:30→21:52)
[2022-04-01] MEDS: PRASUGREL HCL 10 MG TABLET PO SCH (09:21)
[2022-04-01] MEDS: METOPROLOL TARTRATE 25 MG TAB PO SCH ×2 (09:21→21:49)
[2022-04-01] MEDS: ENOXAPARIN SODIUM 30 MG/0.3 ML SQ SCH (09:22)
[2022-04-01] MEDS: Vitamin B Complex/Vit C/Folic Acid PO SCH (09:22)
[2022-04-01] MEDS: FAMOTIDINE 20MG VIAL IV SCH (09:22)
[2022-04-01] MEDS: ASPIRIN 81MG CHEW TAB PO SCH (09:22)
[2022-04-01] MEDS: CEFEPIME HCL 2 GM VIAL IVP SCH ×2 (10:55→21:49)
[2022-04-01] MEDS: SODIUM HYPOCHLORITE 0.25% [HALF STRENGTH] 473 ML TOPICAL SOLN TP SCH (10:55)
[2022-04-01] MEDS: ATORVASTATIN 40 MG TABLET PO SCH (21:49)
[2022-04-02 04:11] VITALS: BP 97/40
[2022-04-02 05:14] LABS: MEAN CORPUSCULAR HEMOGLOBIN 29.3 pg (27.0-33.0); MEAN CORPUSCULAR HGB CONC 32.9 g/dL (32.0-36.0); MEAN CORPUSCULAR VOLUME 88.9 fL (79-99); RED BLOOD CELL COUNT(AUTO) 2.7 MIL/uL (4.00-5.50); RED CELL DISTRIBUTION WIDTH 13.9 % (11.0-15.5); WHITE BLOOD COUNT (AUTO) 7.4 K/uL (4.8-10.8)
[2022-04-02 05:34] LABS: CREATININE 1.2 mg/dL (0.5-1.5); POTASSIUM 3.6 mmol/L (3.5-5.1)
[2022-04-02] MEDS: LEVOTHYROXINE 75 MCG TABLET PO SCH (07:23)
[2022-04-02] MEDS: METRONIDAZOLE 500MG/100ML BAG 100 ML IVPB SCH ×3 (07:24→21:41)
[2022-04-02] MEDS: INSULIN HUMULIN R 100 UNIT/ML 3ML SQ SCH ×7 (07:30→22:41)
[2022-04-02 08:00] VITALS: BP 114/58
[2022-04-02] MEDS: VANCOMYCIN 500MG+NS 100ML 100 ML IV SCH (08:21)
[2022-04-02] MEDS: Vitamin B Complex/Vit C/Folic Acid PO SCH (09:09)
[2022-04-02] MEDS: ASPIRIN 81MG CHEW TAB PO SCH (09:09)
[2022-04-02] MEDS: FAMOTIDINE 20MG VIAL IV SCH (09:09)
[2022-04-02] MEDS: PRASUGREL HCL 10 MG TABLET PO SCH (09:09)
[2022-04-02] MEDS: METOPROLOL TARTRATE 25 MG TAB PO SCH ×2 (09:09→21:41)
[2022-04-02] MEDS: ENOXAPARIN SODIUM 30 MG/0.3 ML SQ SCH (09:10)
[2022-04-02] MEDS: CEFEPIME HCL 2 GM VIAL IVP SCH ×2 (09:10→21:41)
[2022-04-02] MEDS: SODIUM HYPOCHLORITE 0.25% [HALF STRENGTH] 473 ML TOPICAL SOLN TP SCH (09:11)
[2022-04-02] MEDS ORDERED: KCL 20 MEQ ERTAB PO PRN (10:30)
[2022-04-02] MEDS ORDERED: LIDOCAINE HCL-MPF 1% 2ML VIAL IV PRN (10:30)
[2022-04-02] MEDS ORDERED: POTASSIUM CHLORIDE 20MEQ/100ML 100 ML IV PRN (10:30)
[2022-04-02] MEDS ORDERED: POTASSIUM CHLORIDE 10% ELIXIR 20 MEQ/15 ML UDCUP PO PRN (10:30)
[2022-04-02 11:45] VITALS: BP 115/59
[2022-04-02] MEDS: 0.9%NACL 1000ML 1,000 ML IV SCH (14:05)
[2022-04-02] MEDS: KCL 20 MEQ ERTAB PO PRN ×2 (14:08→18:33)
[2022-04-02 16:00] VITALS: BP 139/91
[2022-04-02 19:50] VITALS: BP 150/88
[2022-04-02] MEDS: INSULIN GLARGINE 100 UNITS/ML 10 ML VIAL SQ SCH (21:00)
[2022-04-02] MEDS: ATORVASTATIN 40 MG TABLET PO SCH (21:41)
[2022-04-02 23:35] VITALS: BP 128/61
[2022-04-03] VITALS (21 sets, daily range): BP systolic 113–168; BP diastolic 55–83
[2022-04-03] MEDS: 0.9%NACL 1000ML 1,000 ML IV SCH ×2 (05:19→22:50)
[2022-04-03] MEDS: LEVOTHYROXINE 75 MCG TABLET PO SCH (05:33)
[2022-04-03] MEDS: INSULIN HUMULIN R 100 UNIT/ML 3ML SQ SCH ×7 (05:33→21:00)
[2022-04-03] MEDS: INSULIN GLARGINE 100 UNITS/ML 10 ML VIAL SQ SCH ×2 (05:34→21:00)
[2022-04-03] MEDS: METRONIDAZOLE 500MG/100ML BAG 100 ML IVPB SCH ×3 (05:41→21:10)
[2022-04-03 05:58] LABS: BASOPHILS % (AUTO) 0.8 % (0.0-5.0); EOSINOPHILS % (AUTO) 3.3 % (0.0-8.0); HEMATOCRIT 23.8 % (36-48); LYMPHOCYTES % (AUTO) 34.8 % (21.0-51.0); MEAN CORPUSCULAR HEMOGLOBIN 29.3 pg (27.0-33.0); MEAN CORPUSCULAR HGB CONC 32.8 g/dL (32.0-36.0); MEAN CORPUSCULAR VOLUME 89.5 fL (79-99); MONOCYTES % (AUTO) 7.7 % (3.0-13.0); NEUTROPHILS % (AUTO) 53.1 % (40.0-77.0); PLATELET COUNT (AUTO) 194 K/uL (130-400); RED BLOOD CELL COUNT(AUTO) 2.66 MIL/uL (4.00-5.50); RED CELL DISTRIBUTION WIDTH 13.9 % (11.0-15.5); WHITE BLOOD COUNT (AUTO) 6.6 K/uL (4.8-10.8)
[2022-04-03 06:19] LABS: CREATININE 1.2 mg/dL (0.5-1.5); MAGNESIUM 1.4 mg/dL (1.80-2.40); POTASSIUM 4.2 mmol/L (3.5-5.1)
[2022-04-03] MEDS: MAGNESIUM 2GM PREMIX 50ML 50 ML IV PRN (07:01)
[2022-04-03] MEDS: HONEY 1 APPL/ML TUBE TP SCH (09:00)
[2022-04-03] MEDS: ENOXAPARIN SODIUM 30 MG/0.3 ML SQ SCH (09:00)
[2022-04-03] MEDS: Vitamin B Complex/Vit C/Folic Acid PO SCH (09:00)
[2022-04-03] MEDS: SODIUM HYPOCHLORITE 0.25% [HALF STRENGTH] 473 ML TOPICAL SOLN TP SCH (09:00)
[2022-04-03] MEDS: PRASUGREL HCL 10 MG TABLET PO SCH (09:00)
[2022-04-03] MEDS: METOPROLOL TARTRATE 25 MG TAB PO SCH ×2 (09:00→21:11)
[2022-04-03] MEDS: ASPIRIN 81MG CHEW TAB PO SCH (09:00)
[2022-04-03] MEDS: VANCOMYCIN 750MG VIAL IVPB SCH (09:28)
[2022-04-03] MEDS: FAMOTIDINE 20MG VIAL IV SCH (09:28)
[2022-04-03] MEDS: CEFEPIME HCL 2 GM VIAL IVP SCH ×2 (09:29→22:59)
[2022-04-03] MEDS ORDERED: KETAMINE 50MG/ML SYRINGE 50 MG/ML DISP.SYRIN IV ONE (18:29)
[2022-04-03] MEDS ORDERED: PROPOFOL 10 MG/ML 20ML VIAL IV ONE (18:35)
[2022-04-03] MEDS ORDERED: MIDAZOLAM HCL 1 MG/ML 2ML VIAL ONE (18:35)
[2022-04-03] MEDS: ATORVASTATIN 40 MG TABLET PO SCH (21:11)
[2022-04-04] VITALS (7 sets, daily range): BP systolic 111–149; BP diastolic 60–81
[2022-04-04 05:18] LABS: MEAN CORPUSCULAR HEMOGLOBIN 28.9 pg (27.0-33.0); MEAN CORPUSCULAR HGB CONC 32.7 g/dL (32.0-36.0); MEAN CORPUSCULAR VOLUME 88.4 fL (79-99); RED BLOOD CELL COUNT(AUTO) 2.94 MIL/uL (4.00-5.50); RED CELL DISTRIBUTION WIDTH 13.9 % (11.0-15.5); WHITE BLOOD COUNT (AUTO) 6.3 K/uL (4.8-10.8)
[2022-04-04] MEDS: INSULIN HUMULIN R 100 UNIT/ML 3ML SQ SCH ×7 (05:58→20:31)
[2022-04-04] MEDS: LEVOTHYROXINE 75 MCG TABLET PO SCH (05:58)
[2022-04-04] MEDS: METRONIDAZOLE 500MG/100ML BAG 100 ML IVPB SCH ×3 (05:58→20:29)
[2022-04-04] MEDS: INSULIN GLARGINE 100 UNITS/ML 10 ML VIAL SQ SCH ×2 (06:05→09:14)
[2022-04-04] MEDS: FAMOTIDINE 20MG VIAL IV SCH (09:00)
[2022-04-04] MEDS: METOPROLOL TARTRATE 25 MG TAB PO SCH ×2 (09:01→20:25)
[2022-04-04] MEDS: PRASUGREL HCL 10 MG TABLET PO SCH (09:01)
[2022-04-04] MEDS: Vitamin B Complex/Vit C/Folic Acid PO SCH (09:01)
[2022-04-04] MEDS: ASPIRIN 81MG CHEW TAB PO SCH (09:02)
[2022-04-04] MEDS: ENOXAPARIN SODIUM 30 MG/0.3 ML SQ SCH (09:03)
[2022-04-04] MEDS: SODIUM HYPOCHLORITE 0.25% [HALF STRENGTH] 473 ML TOPICAL SOLN TP SCH (09:04)
[2022-04-04] MEDS: HONEY 1 APPL/ML TUBE TP SCH (09:04)
[2022-04-04] MEDS: VANCOMYCIN 750MG VIAL IVPB SCH (09:18)
[2022-04-04] MEDS: CEFEPIME HCL 2 GM VIAL IVP SCH ×2 (15:27→20:29)
[2022-04-04] MEDS: ATORVASTATIN 40 MG TABLET PO SCH (20:25)
[2022-04-05 00:18] VITALS: BP 122/54
[2022-04-05 04:32] VITALS: BP 126/50
[2022-04-05 05:07] LABS: HEMATOCRIT 25.3 % (36-48); MEAN CORPUSCULAR HGB CONC 32.8 g/dL (32.0-36.0); MEAN CORPUSCULAR VOLUME 88.5 fL (79-99); PLATELET COUNT (AUTO) 193 K/uL (130-400); RED BLOOD CELL COUNT(AUTO) 2.86 MIL/uL (4.00-5.50); RED CELL DISTRIBUTION WIDTH 13.8 % (11.0-15.5); WHITE BLOOD COUNT (AUTO) 6.5 K/uL (4.8-10.8)
[2022-04-05 05:23] LABS: CREATININE 1.2 mg/dL (0.5-1.5); POTASSIUM 3.7 mmol/L (3.5-5.1)
[2022-04-05 05:50] LABS: BASOPHILS % (MANUAL) 1 % (0-2); EOSINOPHILS % (MANUAL) 3 % (1-6); LYMPHOCYTES % (MANUAL) 35 % (22-44); MONOCYTES % (MANUAL) 2 % (2-9); SEGMENTED NEUTROPHILS % 59 % (40-70)
[2022-04-05 05:51] LABS: MAN.DIFF COMMENT-IMPRESSION MANUAL DIFFERENTIAL
[2022-04-05 05:52] LABS: PLATELET MORPHOLOGY COMMENT ADEQUATE
[2022-04-05] MEDS: LEVOTHYROXINE 75 MCG TABLET PO SCH (06:20)
[2022-04-05] MEDS: METRONIDAZOLE 500MG/100ML BAG 100 ML IVPB SCH ×3 (06:20→21:23)
[2022-04-05] MEDS: INSULIN HUMULIN R 100 UNIT/ML 3ML SQ SCH ×7 (06:21→21:21)
[2022-04-05] MEDS: INSULIN GLARGINE 100 UNITS/ML 10 ML VIAL SQ SCH ×2 (06:21→21:22)
[2022-04-05 07:35] VITALS: BP 108/51
[2022-04-05] MEDS: FAMOTIDINE 20MG VIAL IV SCH (08:59)
[2022-04-05] MEDS: VANCOMYCIN 750MG VIAL IVPB SCH (09:00)
[2022-04-05] MEDS: PRASUGREL HCL 10 MG TABLET PO SCH (09:00)
[2022-04-05] MEDS: Vitamin B Complex/Vit C/Folic Acid PO SCH (09:00)
[2022-04-05] MEDS: METOPROLOL TARTRATE 25 MG TAB PO SCH ×2 (09:00→21:22)
[2022-04-05] MEDS: ASPIRIN 81MG CHEW TAB PO SCH (09:00)
[2022-04-05] MEDS: HONEY 1 APPL/ML TUBE TP SCH (09:01)
[2022-04-05] MEDS: SODIUM HYPOCHLORITE 0.25% [HALF STRENGTH] 473 ML TOPICAL SOLN TP SCH (09:01)
[2022-04-05] MEDS: ENOXAPARIN SODIUM 30 MG/0.3 ML SQ SCH (09:01)
[2022-04-05] MEDS: CEFEPIME HCL 2 GM VIAL IVP SCH ×2 (10:47→22:15)
[2022-04-05 11:35] VITALS: BP 185/56
[2022-04-05] MEDS: 0.9%NACL 1000ML 1,000 ML IV SCH (13:20)
[2022-04-05 15:35] VITALS: BP 105/57
[2022-04-05] MEDS: ATORVASTATIN 40 MG TABLET PO SCH (21:22)
[2022-04-05 21:24] VITALS: BP 133/55
[2022-04-06] VITALS (7 sets, daily range): BP systolic 117–153; BP diastolic 46–60
[2022-04-06] MEDS: 0.9%NACL 1000ML 1,000 ML IV SCH (00:50)
[2022-04-06 05:21] LABS: HEMATOCRIT 24.2 % (36-48); MEAN CORPUSCULAR HEMOGLOBIN 29.4 pg (27.0-33.0); MEAN CORPUSCULAR HGB CONC 33.1 g/dL (32.0-36.0); RED BLOOD CELL COUNT(AUTO) 2.72 MIL/uL (4.00-5.50); RED CELL DISTRIBUTION WIDTH 14.2 % (11.0-15.5); WHITE BLOOD COUNT (AUTO) 6.5 K/uL (4.8-10.8)
[2022-04-06 05:41] LABS: CREATININE 1.3 mg/dL (0.5-1.5); POTASSIUM 3.8 mmol/L (3.5-5.1)
[2022-04-06] MEDS: LEVOTHYROXINE 75 MCG TABLET PO SCH (06:04)
[2022-04-06] MEDS: METRONIDAZOLE 500MG/100ML BAG 100 ML IVPB SCH (06:04)
[2022-04-06] MEDS: INSULIN GLARGINE 100 UNITS/ML 10 ML VIAL SQ SCH ×2 (06:05→21:28)
[2022-04-06] MEDS: INSULIN HUMULIN R 100 UNIT/ML 3ML SQ SCH ×7 (06:06→21:27)
[2022-04-06] MEDS: Vitamin B Complex/Vit C/Folic Acid PO SCH (08:57)
[2022-04-06] MEDS: PRASUGREL HCL 10 MG TABLET PO SCH (08:57)
[2022-04-06] MEDS: ASPIRIN 81MG CHEW TAB PO SCH (08:57)
[2022-04-06] MEDS: METOPROLOL TARTRATE 25 MG TAB PO SCH ×2 (08:57→21:29)
[2022-04-06] MEDS: ENOXAPARIN SODIUM 30 MG/0.3 ML SQ SCH (08:57)
[2022-04-06] MEDS: FAMOTIDINE 20MG VIAL IV SCH (08:57)
[2022-04-06] MEDS: 0.9% NACL 250ML 250 ML IV SCH (08:58)
[2022-04-06] MEDS: HONEY 1 APPL/ML TUBE TP SCH (08:58)
[2022-04-06] MEDS: VANCOMYCIN 750MG VIAL IVPB SCH (08:58)
[2022-04-06] MEDS: ATORVASTATIN 40 MG TABLET PO SCH (21:29)
[2022-04-07 03:18] VITALS: BP 127/50
[2022-04-07] MEDS: 0.9%NACL 1000ML 1,000 ML IV SCH (05:42)
[2022-04-07] MEDS: LEVOTHYROXINE 75 MCG TABLET PO SCH (06:29)
[2022-04-07] MEDS: INSULIN GLARGINE 100 UNITS/ML 10 ML VIAL SQ SCH ×2 (06:32→21:33)
[2022-04-07] MEDS: INSULIN HUMULIN R 100 UNIT/ML 3ML SQ SCH ×7 (06:48→21:00)
[2022-04-07 07:35] VITALS: BP 130/58
[2022-04-07 08:13] LABS: HEMATOCRIT 27.7 % (36-48); MEAN CORPUSCULAR HGB CONC 32.9 g/dL (32.0-36.0); MEAN CORPUSCULAR VOLUME 88.2 fL (79-99); RED BLOOD CELL COUNT(AUTO) 3.14 MIL/uL (4.00-5.50); RED CELL DISTRIBUTION WIDTH 14.3 % (11.0-15.5); WHITE BLOOD COUNT (AUTO) 6.1 K/uL (4.8-10.8)
[2022-04-07 08:39] LABS: CREATININE 1.2 mg/dL (0.5-1.5); POTASSIUM 3.7 mmol/L (3.5-5.1)
[2022-04-07] MEDS: 0.9% NACL 250ML 250 ML IV SCH ×2 (09:20→09:22)
[2022-04-07] MEDS: VANCOMYCIN 750MG VIAL IVPB SCH (09:22)
[2022-04-07] MEDS: FAMOTIDINE 20MG VIAL IV SCH (09:23)
[2022-04-07] MEDS: PRASUGREL HCL 10 MG TABLET PO SCH (09:23)
[2022-04-07] MEDS: METOPROLOL TARTRATE 25 MG TAB PO SCH ×2 (09:23→21:32)
[2022-04-07] MEDS: Vitamin B Complex/Vit C/Folic Acid PO SCH (09:23)
[2022-04-07] MEDS: ASPIRIN 81MG CHEW TAB PO SCH (09:23)
[2022-04-07] MEDS: HONEY 1 APPL/ML TUBE TP SCH (09:25)
[2022-04-07] MEDS: ENOXAPARIN SODIUM 30 MG/0.3 ML SQ SCH (09:25)
[2022-04-07 11:25] VITALS: BP 126/48
[2022-04-07 15:20] VITALS: BP 142/86
[2022-04-07 20:26] VITALS: BP 145/54
[2022-04-07] MEDS: ATORVASTATIN 40 MG TABLET PO SCH (21:32)
[2022-04-07 23:32] VITALS: BP 138/56
[2022-04-08] MEDS: 0.9%NACL 1000ML 1,000 ML IV SCH (02:50)
[2022-04-08 03:14] VITALS: BP 111/49
[2022-04-08] MEDS: LEVOTHYROXINE 75 MCG TABLET PO SCH (06:55)
[2022-04-08] MEDS: INSULIN HUMULIN R 100 UNIT/ML 3ML SQ SCH ×2 (07:30→08:51)
[2022-04-08 08:45] VITALS: BP 145/57
[2022-04-08] MEDS: INSULIN GLARGINE 100 UNITS/ML 10 ML VIAL SQ SCH (08:52)
[2022-04-08] MEDS: FAMOTIDINE 20MG VIAL IV SCH (08:55)
[2022-04-08] MEDS: HONEY 1 APPL/ML TUBE TP SCH (08:55)
[2022-04-08] MEDS: ENOXAPARIN SODIUM 30 MG/0.3 ML SQ SCH (08:56)
[2022-04-08] MEDS: Vitamin B Complex/Vit C/Folic Acid PO SCH (08:56)
[2022-04-08] MEDS: VANCOMYCIN 750MG VIAL IVPB SCH (08:56)
[2022-04-08] MEDS: ASPIRIN 81MG CHEW TAB PO SCH (08:57)
[2022-04-08] MEDS: PRASUGREL HCL 10 MG TABLET PO SCH (08:57)
[2022-04-08] MEDS: METOPROLOL TARTRATE 25 MG TAB PO SCH (08:57)
[2022-04-08 12:15] VITALS: BP 116/57
[2022-04-08] MEDS ORDERED: CEFU500T67 PO ×2 (12:24→16:08)
[2022-04-08] MEDS ORDERED: GLIM4TAB36 PO (16:14)
[2022-04-08] MEDS ORDERED: INSU100V12 SQ (16:14)
== END 2022-04-08 14:39 | disposition home or self-care (01) | DRG 463 ==
LOC: EDH 21:30 → EDHIP 21:31 → 2AH 03-23 04:58 → 3AH 03-27 15:44
PROVIDERS: ADMIT Hospitalist; ATTEND Hospitalist
PROC: 047L3DZ Dilation of Left Femoral Artery with Intraluminal Device, Percutaneous Approach (ICD-10-PCS; principal; 2022-03-25)
PROC: 04FL3ZZ Fragmentation of Left Femoral Artery, Percutaneous Approach (ICD-10-PCS; 2022-03-25)
PROC: 04FN3ZZ Fragmentation of Left Popliteal Artery, Percutaneous Approach (ICD-10-PCS; 2022-03-25)
PROC: B4101ZZ Fluoroscopy of Abdominal Aorta using Low Osmolar Contrast (ICD-10-PCS; 2022-03-25)
PROC: B41G1ZZ Fluoroscopy of Left Lower Extremity Arteries using Low Osmolar Contrast (ICD-10-PCS; 2022-03-25)
PROC: 0JBP0ZZ Excision of Left Lower Leg Subcutaneous Tissue and Fascia, Open Approach (ICD-10-PCS; 2022-04-03)
DX: T87.44 Infection of amputation stump, left lower extremity (principal); I21.A1 Myocardial infarction type 2; L03.90 Cellulitis, unspecified; N17.9 Acute kidney failure, unspecified; M86.8X6 Other osteomyelitis, lower leg; T87.81 Dehiscence of amputation stump; Y83.5 Amputation of limb(s) as the cause of abnormal reaction of the patient, or of later complication, without mention of misadventure at the time of the procedure; E03.9 Hypothyroidism, unspecified; E11.22 Type 2 diabetes mellitus with diabetic chronic kidney disease; E11.51 Type 2 diabetes mellitus with diabetic peripheral angiopathy without gangrene; E11.65 Type 2 diabetes mellitus with hyperglycemia; E78.5 Hyperlipidemia, unspecified; I12.9 Hypertensive chronic kidney disease with stage 1 through stage 4 chronic kidney disease, or unspecified chronic kidney disease; I25.2 Old myocardial infarction; N18.30 Chronic kidney disease, stage 3 unspecified; Z79.4 Long term (current) use of insulin; Z79.84 Long term (current) use of oral hypoglycemic drugs; Z20.822 Contact with and (suspected) exposure to COVID-19; D64.9 Anemia, unspecified; E11.621 Type 2 diabetes mellitus with foot ulcer; E11.69 Type 2 diabetes mellitus with other specified complication; Z79.899 Other long term (current) drug therapy; E83.42 Hypomagnesemia; E11.21 Type 2 diabetes mellitus with diabetic nephropathy; B96.20 Unspecified Escherichia coli [E. coli] as the cause of diseases classified elsewhere
CPT/HCPCS: 36415; 73562; 73718; 75716; 76770; 80048; 80051; 80053; 80061; 80202; 81001; 81003; 82550; 82728; 82948; 83036; 83540; 83550; 83605; 83735; 83880; 84100; 84145; 84439; 84443; 84481; 84484; 84550; 85025; 85027; 85347; 85651; 86140; 87040; 87070; 87076; 87077; 87186; 87205; 87635; 93005; 93925; 99156; 99157; C1760; C1769; C1893; C1894; C9765; G0378; J0692; J1644; J1650; J1815; J2250; J2704; J3010; J3370; J3475; J3490; J7030; J7050; Q9967